=== PATIENT | male | born 1985 | race American Indian/Alaskan Native ===

== ENCOUNTER 2019-02-13 04:13 | Emergency (ER) | payer OTHER ==
[2019-02-13 05:11] LABS: Basophils % (Auto) 0.3 % (0.0-1.8); Hematocrit 41.8 % (35.5-45.6); Hemoglobin 14.2 gm/dl (11.8-15.2); Lymphocytes # (Auto) 0.9 K/mm3 (1.2-5.4); Lymphocytes % (Auto) 8.2 % (13.4-35.0); Mean Corpuscular HGB Conc 34 % (32-34); Mean Corpuscular Volume 91 fl (84-94); Monocytes # (Auto) 0.5 K/mm3 (0.0-0.8); Monocytes % (Auto) 4.6 % (0.0-7.3); Platelet Count 221 K/mm3 (140-440); Red Cell Distribution Width 13.3 % (13.2-15.2)
[2019-02-13 05:15] LABS: Bilirubin,Urine NEG (Negative); Blood,Urine NEG (Negative); Calcium Oxalate Crystals,Urine 1+; Color,Urine Yellow (Yellow); Mucus,Urine FEW /HPF; Protein,Urine <15 mg/dL mg/dL (Negative)
[2019-02-13 05:22] LABS: Amphetamine Screen,Urine PRESUMPTIVE NEGATIVE; Benzodiazepines Screen,Urine PRESUMPTIVE NEGATIVE; Methadone Screen,Urine PRESUMPTIVE NEGATIVE; Opiate Screen,Urine PRESUMPTIVE NEGATIVE
[2019-02-13 05:34] LABS: BUN/Creatinine Ratio 14; Blood Urea Nitrogen 19 mg/dL (9-20); Calcium 9.7 mg/dL (8.4-10.2); Hemolysis Index 8
[2019-02-13 05:47] LABS: Cannabinoid Screen,Urine PRESUMPTIVE POSITIVE; Cocaine Screen,Urine PRESUMPTIVE POSITIVE
--- NOTE | 2019-02-13 07:32 | Emergency Department Report ---
HPI - General Chief Complaint: Psych Time Seen by Provider: 02/13/19 07:16 - HPI HPI: [facility] The patient is a 33-year-old male presented with a chief complaint of paranoia. The patient states she has a history of bipolar disorder and depression for 1-2 years is intermittent paranoia feel as though people are trying to kill him. Patient denies suicidal or homicidal ideation. When asked about auditory hallucinations patient states sometimes he hears things that he thinks are demons. Patient denies visual hallucinations Location: Mental state Duration: 1-2 years Quality: Paranoia Severity: Moderate Modifying factors: [see above] Context: [see above] Mode of transportation: [not driving] ED Past Medical Hx - Past Medical History Previous Medical History?: Yes Hx Psychiatric Treatment: Yes (paranoid schizophrenia) - Surgical History Past Surgical History?: No - Family History Family history: no significant - Social History Smoking Status: Never Smoker Substance Use Type: Marijuana - Medications Home Medications: Home Medications Medication Instructions Recorded Confirmed Last Taken Type No Known Home Medications [No 02/13/19 02/13/19 Unknown History Reported Home Medications] ED Review of Systems ROS: Stated complaint: MH EVAL Other details as noted in HPI Constitutional: no symptoms reported Eyes: denies: eye pain ENT: denies: throat pain Respiratory: no symptoms reported Cardiovascular: denies: chest pain Endocrine: no symptoms reported Gastrointestinal: denies: abdominal pain Genitourinary: denies: dysuria Musculoskeletal: denies: back pain Neurological: denies: headache Psychiatric: auditory hallucinations (?), other (paranoid). denies: visual hallucinations, homicidal thoughts, suicidal thoughts Physical Exam - Physical Exam Vital Signs: Vital Signs 02/13/19 04:28 Temperature 99.5 F Pulse Rate 141 H Respiratory 20 Rate Blood Pressure 166/84 [Right] O2 Sat by Pulse 96 Oximetry Physical Exam: GENERAL: The patient is well-developed well-nourished male lying on stretcher asleep not appearing to be in acute distress. [] HEENT: Normocephalic. Atraumatic. Extraocular motions are intact. Patient has moist mucous membranes. NECK: Supple. Trachea midline CHEST/LUNGS: Clear to auscultation. There is no respiratory distress noted. HEART/CARDIOVASCULAR: Regular. There is no tachycardia. There is no gallop rub or murmur. ABDOMEN: Abdomen is soft, nontender. Patient has normal bowel sounds. There is no abdominal distention. SKIN: There is no rash. There is no edema. There is no diaphoresis. NEURO: The patient is awake, alert, and oriented. The patient is cooperative. The patient has normal speech MUSCULOSKELETAL: There is no evidence of acute injury. ED Course Vital Signs 02/13/19 04:28 Temperature 99.5 F Pulse Rate 141 H Respiratory 20 Rate Blood Pressure 166/84 [Right] O2 Sat by Pulse 96 Oximetry - Consultations Consultation #1: 02/13/19 11:42 Case discussed with mental health erp consultant (Miranda)-states patient meets in patient criteria and should be placed on 1013 for paranoia and hallucinations ED Medical Decision Making - Lab Data Result diagrams: 02/13/19 04:47 02/13/19 04:47 Laboratory Tests 02/13/19 02/13/19 02/13/19 04:27 04:27 04:47 WBC RBC Hgb Hct MCV MCH MCHC RDW Plt Count Lymph % (Auto) [place] % (Auto) Eos % (Auto) Baso % (Auto) Lymph # [place] # Eos # Baso # Seg Neutrophils % Seg Neutrophils # Sodium Potassium Chloride Carbon Dioxide Anion Gap BUN Creatinine Estimated GFR BUN/Creatinine Ratio Glucose Calcium Urine Color Yellow Urine Turbidity Clear Urine pH 5.0 Ur Specific [place] 1.031 H Urine Protein <15 mg/dl Urine Glucose (UA) 50 Urine Ketones Tr Urine Blood Neg Urine Nitrite Neg Urine Bilirubin Neg Urine Urobilinogen 2.0 Ur Leukocyte Esterase Neg Urine WBC (Auto) 1.0 Urine RBC (Auto) 2.0 Calcium Oxalate Crystal 1+ Urine Mucus Few Salicylates < 0.3 L Urine Opiates Screen Presumptive negative Urine Methadone Screen Presumptive negative Acetaminophen Ur Barbiturates Screen Presumptive negative Ur Phencyclidine Scrn Presumptive negative Ur Amphetamines Screen Presumptive negative U Benzodiazepines Scrn Presumptive negative Urine Cocaine Screen Presumptive positive U Marijuana (THC) Screen Presumptive positive Drugs of Abuse Note Disclamer Plasma/Serum Alcohol 02/13/19 02/13/19 02/13/19 04:47 04:47 04:47 WBC RBC Hgb Hct MCV MCH MCHC RDW Plt Count Lymph % (Auto) [place] % (Auto) Eos % (Auto) Baso % (Auto) Lymph # [place] # Eos # Baso # Seg Neutrophils % Seg Neutrophils # Sodium 142 Potassium 4.4 Chloride 105.7 Carbon Dioxide 22 Anion Gap 19 BUN 19 Creatinine 1.4 Estimated GFR > 60 BUN/Creatinine Ratio 14 Glucose 129 H Calcium 9.7 Urine Color Urine Turbidity Urine pH Ur Specific [place] Urine Protein Urine Glucose (UA) Urine Ketones Urine Blood Urine Nitrite Urine Bilirubin Urine Urobilinogen Ur Leukocyte Esterase Urine WBC (Auto) Urine RBC (Auto) Calcium Oxalate Crystal Urine Mucus Salicylates Urine Opiates Screen Urine Methadone Screen Acetaminophen < 5.0 L Ur Barbiturates Screen Ur Phencyclidine Scrn Ur Amphetamines Screen U Benzodiazepines Scrn Urine Cocaine Screen U Marijuana (THC) Screen Drugs of Abuse Note Plasma/Serum Alcohol < 0.01 02/13/19 04:47 WBC 10.4 RBC 4.60 Hgb 14.2 Hct 41.8 MCV 91 MCH 31 MCHC 34 RDW 13.3 Plt Count 221 Lymph % (Auto) 8.2 L [place] % (Auto) 4.6 Eos % (Auto) 0.0 Baso % (Auto) 0.3 Lymph # 0.9 L [place] # 0.5 Eos # 0.0 Baso # 0.0 Seg Neutrophils % 86.9 H Seg Neutrophils # 9.1 H Sodium Potassium Chloride Carbon Dioxide Anion Gap BUN Creatinine Estimated GFR BUN/Creatinine Ratio Glucose Calcium Urine Color Urine Turbidity Urine pH Ur Specific [place] Urine Protein Urine Glucose (UA) Urine Ketones Urine Blood Urine Nitrite Urine Bilirubin Urine Urobilinogen Ur Leukocyte Esterase Urine WBC (Auto) Urine RBC (Auto) Calcium Oxalate Crystal Urine Mucus Salicylates Urine Opiates Screen Urine Methadone Screen Acetaminophen Ur Barbiturates Screen Ur Phencyclidine Scrn Ur Amphetamines Screen U Benzodiazepines Scrn Urine Cocaine Screen U Marijuana (THC) Screen Drugs of Abuse Note Plasma/Serum Alcohol - Differential Diagnosis schizophrenia Critical care attestation.: If time is entered above; I have spent that time in minutes in the direct care of this critically ill patient, excluding procedure time. ED Disposition Clinical Impression: Paranoia Disposition: [id number]/TX-[id number] PSY HOSP/PSY UNIT Is pt being admited?: No Does the pt Need Aspirin: No Condition: Fair Referrals: PRIMARY CARE, [Primary Care Provider] - 3-5 Days Time of Disposition: 11:42 (awaiting acceptance)
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
[2019-02-13] MEDS: ABILIFY PO SCH (16:34)
[2019-02-14 07:48] VITALS: BP 135/89
--- NOTE | 2019-02-14 09:17 | Progress Note ---
Subjective - Reason for Consult Consult date: 02/14/19 Reason for consult: Psychiatry Follow-up - Chief Complaint Chief complaint: "I feel much better today" 33-year-old male who presented to the ER for paranoid delusions. Today the patient is calm and cooperative during the assessment. He stated that his behavior stem from his drug use. He stated that he will not use drugs again and plan to follow up with rehab services. Per the notes, no behavioral disturbances overnight. He denies SI/HI's and AVH's. He denies any side effects of his medication. Mental Status Exam - Vital signs Last Vital Signs Temp 97.8 F 02/14/19 07:47 Pulse 62 02/14/19 07:47 Resp 18 02/14/19 07:47 BP 135/89 02/14/19 07:47 Pulse Ox 98 02/14/19 07:47 - Exam Narrative exam: MSE: Appearance: calm, cooperative Behavior: regular eye contact Speech: regular rate with loud tone Mood:: "much better" Affect: congruent to mood Thought Process: linear Thought Content: denies SI/HI's and AVH's Motor Activity: ambulatory Cognition: A/O x3 Insight: appropriate Judgment: appropriate Assessment and Plan Impression: Unspecified Psychosis. Today the patient is calm and cooperative during the assessment. The patient's psyhcosis has resolved. DDx: Substance Induced Psychosis Recommendation/Plan: Rescind 1013. Continue Abilify 5 mg PO daily. Discussed the importance to abstain from recreational drug use with the patient, he verbalized understanding. Disp: The patient can follow up with [facility] for outpatient psy/rehab services. Will staff with Dr. Anya Hall.
[2019-02-14] MEDS: ABILIFY PO SCH (10:27)
== END 2019-02-14 10:30 ==
LOC: EEVIPCON 04:13 → ED 04:13
DX: F20.0 Paranoid schizophrenia (principal); F31.9 Bipolar disorder, unspecified; F12.10 Cannabis abuse, uncomplicated
CPT/HCPCS: 36415; 80048; 80307; 81001; 85025; 99284; G0480; 80320